=== PATIENT | female | born 1965 | race Caucasian/White ===

== ENCOUNTER 2020-07-04 21:56 | Inpatient (IN) ==
[2020-07-04] MEDS ORDERED: ALBUTEROL SULFATE/IPRATROPIUM 3 ML NEBU IH ONE (23:00)
[2020-07-04] MEDS ORDERED: NORMAL SALINE 1,000 ML IV ONE (23:00)
--- NOTE | 2020-07-04 23:05 | ERNOTE ---
Date of Service: 07/04/20 Time Seen by Provider: 07/04/20 22:59 Stated Complaint: sob Presenting Symptoms:: cough, other - Difficulty breathing Source: patient Exam Limitations: no limitations Immunizations: IMMUNIZATION HX Immunizations Up to Date Yes History of Influenza Vaccine Yes Hx Pneumococcal Vaccination Yes Allergies/Adverse Reactions: Allergies ciprofloxacin [From Cipro] Allergy (Unknown, Verified 07/04/20 22:13) swollen eyes, itching azithromycin [From Zithromax Z-Richard] Adverse Reaction (Unknown, Verified 07/04/20 22:13) felt disconnected tramadol Adverse Reaction (Unknown, Verified 07/04/20 22:13) vomiting venlafaxine Adverse Reaction (Unknown, Verified 07/04/20 22:13) out of body experience Home Medications: HOME MEDICATIONS losartan 50 mg tablet 50 mg PO DAILY #30 tab 01/15/20 [Last Taken Unknown] albuterol sulfate 90 mcg/actuation aerosol inhaler 2 puff IH Q3H PRN #8.5 g 03/16/20 [Last Taken Unknown] lansoprazole 30 mg capsule,delayed release See Rx Instructions .ROUTE .COMPLEX #30 cap 03/16/20 [Last Taken Unknown] levothyroxine 88 mcg tablet 88 mcg PO DAILY #30 tab 04/20/20 [Last Taken Unknown] furosemide 80 mg tablet See Rx Instructions .ROUTE .COMPLEX #30 tab 04/27/20 [Last Taken Unknown] phentermine 37.5 mg tablet 37.5 mg PO DAILY #30 tab 05/24/20 [Last Taken Unknown] ibuprofen 600 mg tablet 600 mg PO Q6H PRN #90 tab 06/30/20 [Last Taken Unknown] Dexamethasone [Decadron] 6 mg PO DAILY #7 tab 07/02/20 [Last Taken Unknown] HYDROcodone/ACETAMINOPHEN [[place] 10-325 Tablet] 1 ea PO TID 10 Days #30 tab 07/02/20 [Last Taken Unknown] - History of Present Ilness Narrative: 55-year-old female diagnosed with Covid nineteen 1 week ago, complaining for the last 24 hours unable to take it deep breaths feels like she cannot breathe her sats were 87% room air. Seen here 2 nights ago because she was having a lot of pain was prescribed she was prescribed Vicodin Motrin. She also says she has a fever but low-grade Date (Duration): 07/04/20 Time (Timing): 23:02 Timing: constant Severity: moderate Frequency/Possible Cause: Reports: no prior episodes Modifying Factors - Improves: Reports: rest Modifying Factors - Worsens: Reports: activity, coughing Associated Symptoms: Reports: chest pain/soreness, cough, shortness of breath, wheezing Prior Treatment: Reports: recently seen Review of Systems - Review of Systems Constitutional: Present: no symptoms reported, fever, weakness, fatigue EYE: Present: no symptoms reported ENT: Present: no symptoms reported Respiratory: Present: shortness of breath, cough, wheezing Cardiology: Present: no symptoms reported Gastrointestinal/Abdominal: Present: no symptoms reported Genitourinary: Present: no symptoms reported All Other Systems: All systems neg except as marked Medical History (Last Reviewed 07/04/20 @ 23:03 by Douglas Vinson MD) Hypothyroidism (Chronic) Onset Date: Unknown Frequent headaches (Chronic) Onset Date: Unknown Fatigue (Chronic) Onset Date: ~2011 Depressive disorder (Chronic) Onset Date: ~2011 Surgical History: Surgical History (Last Reviewed 07/04/20 @ 23:03 by Douglas Vinson MD) History of endometrial ablation Onset Date: Unknown History of tonsillectomy Onset Date: ~2014 Family History: Family History (Last Reviewed 07/04/20 @ 22:12 by Kavitha Restrepo RN) Father Myocardial infarction Mother Hypothyroidism Social History: (Last Reviewed 07/04/20 @ 22:12 by Kavitha Restrepo RN) Social History: Marital status: household members: spouse current occupational status: employed current occupation: [employer] Highest level of school completed/degree received: high school graduate Service: No Tobacco: Smoking Status: Never smoker Alcohol: alcohol intake: never Substance Use: substance use type: does not use Dietary Habits: caffeine: Yes Physical Exam - Physical Exam General Appearance: Present: wd/wn, alert, moderate distress Head Exam: Present: normal inspection Eye Exam: Normal inspection: bilateral, PERRL: bilateral, EOMI: bilateral Ears, Nose, Throat: Present: normal ENT inspection Neck: Present: normal inspection Respiratory: Present: chest nontender, respiratory distress, decreased breath sounds, wheezing Cardiovascular/Chest: Present: regular rate, rhythm Gastrointestinal/Abdominal: Present: normal bowel sounds Extremity Exam: Present: normal inspection Neurological Exam: Present: alert, oriented Skin Exam: Present: normal color Lymphatic Exam: Present: no adenopathy Progress - Results and Orders Patient's Lab Results:: I have reviewed the patient's lab results. Results and Orders: Laboratory Tests 07/04/20 07/04/20 23:10 23:10 WBC 10.3 RBC 4.28 Hgb 13.0 Hct 40.0 MCV 93.5 MCH 30.4 MCHC 32.5 RDW 12.5 Plt Count 285 Neutrophils % 90.6 H Lymphocytes % 4.8 L Sodium 142 Plasma Sodium 143 H Potassium 3.9 Chloride 103 Carbon Dioxide 32.0 Anion Gap 10.9 BUN 16 Creatinine 0.77 Est GFR (Non-Af Amer) 82 D BUN/Creatinine Ratio 20.8 Random Glucose 137 H Calcium 8.7 Calcium Adj for Albumin 9.3 Total Bilirubin 0.5 AST 285 H ALT 326 H Alkaline Phosphatase 168 Total Protein 6.7 Albumin 2.8 L Laboratory Tests 07/04/20 23:10 D-Dimer 0.57 H - Vital Signs Patient's Vital Signs:: I have reviewed the patient's vital signs. Vital Signs: Vital Signs 07/04/20 22:04 Temperature 36.9 C Pulse Rate 83 Blood Pressure 135/80 O2 Sat by Pulse Oximetry 87 L - EKG EKG #1 EKG: NSR, nonspecific ST T wave changes EKG read: Interp. by me EKG Comments: EKG shows sinus rhythm heart rate 80 nonspecific T wave changes no acute changes - X-Ray X-Ray #1 X-Ray: chest Interpretation: Interp. by me X-ray Comments: Bilateral infiltrate bilateral infiltrates upper and lower lobes - Progress/Reassessment Chief Complaint: Upper Respiratory Symptoms Progress:: Improved Progress Note-Subjective: 07/05/20 01:51 Patient after treatment felt somewhat better but she still coughing and her sats are running 2 L around 92 to 93% Plan - Plan Plan: Patient to be admitted to the hospital Dr. Matthew. Departure Clinical Impression: Pneumonia due to COVID-19 virus - Departure Disposition: Short Term Hospital Inpatient Condition: Fair Additional Instructions: Admit to the hospital Referrals: Merly Gomez MD [Primary Care Provider] -
[2020-07-04 23:20] LABS: Mean Cell Volume 93.5 fl (78-100); Mean Corpuscular Hemoglobin 30.4 pg (27-31); Mean Corpuscular Hgb Conc 32.5 g/dl (32-36); Mean Platelet Volume 9.3 fl (8-12.5); Neutrophil # 9.4 K/mm3 (1.3-6.0); Neutrophil % 90.6 % (42-75.0); Platelet Count 285 K/mm3 (150-450); Red Blood Count 4.28 M/mm3 (4.2-5.4); Red Cell Distribution Width 12.5 % (11.5-14.0); White Blood Count 10.3 K/mm3 (4.0-10.5)
[2020-07-04 23:37] LABS: Albumin * 2.8 gm/dl (3.4-5.0); Anion Gap 10.9 mmol/L (6.8-13.8); BUN/Creatinine Ratio 20.8 (9.0-21.6); Bilirubin, Total 0.5 mg/dL (0.0-1.1); Ca. Corrected For Albumin 9.3 mg/dL (8.4-10.2); Calcium * 8.7 mg/dL (7.9-10.9); Potassium 3.9 mmol/L (3.4-4.6); Total Protein 6.7 gm/dL (6.2-8.2)
[2020-07-05] MEDS ORDERED: KETOROLAC TROMETHAMINE 30 MG/ML VIAL IV ONE (00:11)
[2020-07-05] MEDS ORDERED: DEXAMETHASONE SODIUM PHOSP/PF 10 MG/ML VIAL IV ONE (02:01)
[2020-07-05] MEDS ORDERED: cefTRIAXone SODIUM 2,000 MG/100 ML BAG IV ONE (02:13)
[2020-07-05] MEDS ORDERED: NORMAL SALINE 1,000 ML IV ONE (04:19)
[2020-07-05] MEDS: guaiFENesin/DEXTROMETHORPHAN SYRUP PO PRN (04:48)
[2020-07-05] MEDS: ACETAMINOPHEN 325 MG TABLET PO PRN ×2 (04:48→18:39)
[2020-07-05] MEDS: LORazepam 0.5 MG TABLET PO PRN ×3 (07:18→18:39)
[2020-07-05] MEDS ORDERED: ALBUTEROL SULFATE 2.5 MG/3 ML VIAL.NEB IH PRN (12:38)
[2020-07-05] MEDS ORDERED: LIDOCAINE HCL 50 ML VIAL IM ONE (12:43)
[2020-07-05] MEDS ORDERED: AZITHROMYCIN 500 MG in DEXTROSE 5 % IN WATER 250 ML IV SCH ×2 (12:45)
--- NOTE | 2020-07-05 12:50 | HP ---
Chief Complaint - Chief Complaint Date of Service: 07/05/20 Time of Service: 12:40 Chief Complaint: I did have weakness, shortness of breath, and cough for several days History of Present Illness: 55-year-old female with past medical history of obesity, hypertension, anxiety disorder, and hypothyroidism was evaluated in the ER for worsening symptoms due to COVID-19 pneumonia. Patient was seen in the ER 2 days ago for increasing shortness of breath, cough, congestion, and generalized weakness she was found to be COVID-19 positive and was discharged with pain medications for body aches and a 10-day course of oral dexamethasone. However once the patient got home her symptoms continue to worsen and she got weaker and sicker, so much so that she felt that she could not handle the symptoms at home any longer and return to the ER. Once in the ER the patient was found to be hypoxemic and acutely ill so decision to admit her for intrahospital care was made. Medical History (Last Reviewed 07/04/20 @ 23:03 by Douglas Vinson MD) Hypothyroidism (Chronic) Onset Date: Unknown Frequent headaches (Chronic) Onset Date: Unknown Fatigue (Chronic) Onset Date: ~2011 Depressive disorder (Chronic) Onset Date: ~2011 Surgical History: Surgical History (Last Reviewed 07/04/20 @ 23:03 by Douglas Vinson MD) History of endometrial ablation Onset Date: Unknown History of tonsillectomy Onset Date: ~2014 Family History: Family History (Last Reviewed 07/04/20 @ 22:12 by Kavitha Restrepo RN) Father Myocardial infarction Mother Hypothyroidism Social History: (Last Reviewed 07/04/20 @ 22:12 by Kavitha Restrepo RN) Social History: Marital status: household members: spouse current occupational status: employed current occupation: [employer] Highest level of school completed/degree received: high school graduate Service: No Tobacco: Smoking Status: Never smoker Alcohol: alcohol intake: never Substance Use: substance use type: does not use Dietary Habits: caffeine: Yes Peds Patient Hx - Developmental: No Pertinent Hx Peds Patient Hx - Medical: No Pertinent Hx Peds Patient Hx - Cardiac/Respiratory: No Pertinent Hx Peds Patient Hx - Surgical: No Surgical History Patient History - Cancer: No Hx of Cancer Review Of Systems (GEN) - Review of Systems Generalized/Overall Review: Present: Weakness, Chills, Fever, Fatigue EENTM: Present: No Symptoms Reported Respiratory: Present: Cough, Shortness of Breath Cardiac: Present: No Symptoms Reported Abdominal: Present: No Symptoms Reported Genitourinary: Present: No Symptoms Reported Musculoskeletal: Present: No Symptoms Reported Neurological: Present: No Symptoms Reported Skin: Present: No Symptoms Reported Endocrine: Present: No Symptoms Reported Immunizations: IMMUNIZATION HX Immunizations Up to Date Yes History of Influenza Vaccine Yes Hx Pneumococcal Vaccination Yes Allergies/Adverse Reactions: Allergies Allergy/AdvReac Type Severity Reaction Status Date / Time ciprofloxacin [From Cipro] Allergy Unknown swollen Verified 07/04/20 22:13 eyes, itching azithromycin AdvReac Unknown felt Verified 07/04/20 22:13 [From Zithromax Z-Richard] disconnected tramadol AdvReac Unknown vomiting Verified 07/04/20 22:13 venlafaxine AdvReac Unknown out of Verified 07/04/20 22:13 body experience Home Medications: HOME MEDICATIONS losartan 50 mg tablet 50 mg PO DAILY #30 tab 01/15/20 [Last Taken Unknown] albuterol sulfate 90 mcg/actuation aerosol inhaler 2 puff IH Q3H PRN #8.5 g 03/16/20 [Last Taken Unknown] levothyroxine 88 mcg tablet 88 mcg PO DAILY #30 tab 04/20/20 [Last Taken Unknown] furosemide 80 mg tablet See Rx Instructions .ROUTE .COMPLEX #30 tab 04/27/20 [Last Taken Unknown] ibuprofen 600 mg tablet 600 mg PO Q6H PRN #90 tab 06/30/20 [Last Taken Unknown] Dexamethasone [Decadron] 6 mg PO DAILY #7 tab 07/02/20 [Last Taken Unknown] HYDROcodone/ACETAMINOPHEN [[place] 10-325 Tablet] 1 ea PO TID PRN 07/05/20 [Last Taken Unknown] Lansoprazole [Prevacid] See Rx Instructions .ROUTE .COMPLEX PRN 07/05/20 [Last Taken Unknown] Exam - Exam Vital Signs: Vital Signs - Last Taken Temp 37.0 C 07/05/20 12:00 Pulse 76 07/05/20 12:00 Resp 20 07/05/20 12:00 BP 152/76 H 07/05/20 12:00 Pulse Ox 98 07/05/20 12:11 Constitutional: Present: Alert, Oriented x3, Cooperative, Well developed, Well nourished, No distress, Morbidly obese ENT Exam: Present: normal ENT inspection, hearing grossly normal Eye Exam: bilateral eye: normal inspection, PERRL, EOMI Neck: Present: non-tender, full range of motion, supple, normal inspection, trachea midline Back Exam: Present: normal inspection, no CVA tenderness, no vertebral tenderness Breasts: Present: Exam deferred, Nontender Respiratory: Present: chest non-tender, lungs clear, normal breath sounds, no respiratory distress, no accessory muscle use Cardiovascular/Chest: Present: normal peripheral pulses, regular rate, rhythm, no chest tenderness, no edema, no gallop, no JVD, no murmur, no rub Peripheral Pulses: dorsalis-pedis (R): 2+, dorsalis-pedis (L): 2+ Abdomen: Present: Normal bowel sounds, soft, nontender, nondistended, no rebound tenderness, no hepatospenomegaly, no masses, obese /Rectal: Present: Exam deferred Extremity: Present: normal range of motion, non-tender, normal inspection, no pedal edema, no calf tenderness, normal capillary refill, pelvis stable Skin Exam: Present: normal color, warm/dry, no cyanosis Lymphatic: Present: no adenopathy Neurologic: Present: rubber block layer II-XII nml as tested, no motor/sensory deficits, alert, normal mood/affect, oriented x 3 Appearance: Present: appropriate appearance, appropriate insight, neat, no memory impairment Eye contact: Present: cooperative, good eye contact, normal speech Thoughts: Present: normal thought pattern, no apparent hallucination Diagnostic Studies: Abnormal Lab Results 07/04/20 07/04/20 07/04/20 Range/Units 23:10 23:10 23:10 Immature Gran % (Auto) 0.90 H (0.001-0.429) % Immature Gran # (Auto) 0.09 H (0.000-0.0310) K/mm3 Neutrophils % 90.6 H (42-75.0) % Lymphocytes % 4.8 L (20-51) % Neutrophils # 9.4 H (1.3-6.0) K/mm3 Lymphocytes # 0.50 L (1.5-3.5) k/mm3 D-Dimer 0.57 H (0.19-0.49) ugFEU/mL Plasma Sodium 143 H (130-142) mmol/L Random Glucose 137 H (70-110) mg/dL AST 285 H (0-48) U/L ALT 326 H (19-67) U/L Albumin 2.8 L (3.4-5.0) gm/dl Laboratory Results WBC 10.3 K/mm3 (4.0-10.5) 07/04/20 23:10 RBC 4.28 M/mm3 (4.2-5.4) 07/04/20 23:10 Hgb 13.0 gm/dL (12.5-16.0) 07/04/20 23:10 Hct 40.0 % (37.0-47.0) 07/04/20 23:10 MCV 93.5 fl (78-100) 07/04/20 23:10 MCH 30.4 pg (27-31) 07/04/20 23:10 MCHC 32.5 g/dl (32-36) 07/04/20 23:10 RDW 12.5 % (11.5-14.0) 07/04/20 23:10 Plt Count 285 K/mm3 (150-450) 07/04/20 23:10 MPV 9.3 fl (8-12.5) 07/04/20 23:10 Immature Gran % (Auto) 0.90 % (0.001-0.429) H 07/04/20 23:10 Immature Gran # (Auto) 0.09 K/mm3 (0.000-0.0310) H 07/04/20 23:10 Neutrophils % 90.6 % (42-75.0) H 07/04/20 23:10 Lymphocytes % 4.8 % (20-51) L 07/04/20 23:10 Monocytes % 3.6 % (0.0-9) 07/04/20 23:10 Eosinophils % 0.0 % (0.0-3.0) 07/04/20 23:10 Basophils % 0.1 % (0.0-1.0) 07/04/20 23:10 Nucleated RBC % 0.0 k/mm3 (0-1) 07/04/20 23:10 Neutrophils # 9.4 K/mm3 (1.3-6.0) H 07/04/20 23:10 Lymphocytes # 0.50 k/mm3 (1.5-3.5) L 07/04/20 23:10 Monocytes # 0.4 k/mm3 (0.0-1.0) 07/04/20 23:10 Eosinophils # 0.0 k/mm3 (0.0-0.7) 07/04/20 23:10 Absolute Basophils 0.0 k/mm3 (0.0-0.1) 07/04/20 23:10 D-Dimer 0.57 ugFEU/mL (0.19-0.49) H 07/04/20 23:10 Sodium 142 mmol/L (132-142) 07/04/20 23:10 Plasma Sodium 143 mmol/L (130-142) H 07/04/20 23:10 Potassium 3.9 mmol/L (3.4-4.6) 07/04/20 23:10 Chloride 103 mmol/L (97-106) 07/04/20 23:10 Carbon Dioxide 32.0 mmol/L (24-32.6) 07/04/20 23:10 Anion Gap 10.9 mmol/L (6.8-13.8) 07/04/20 23:10 BUN 16 mg/dL (3-23) 07/04/20 23:10 Creatinine 0.77 mg/dL (0.4-1.4) 07/04/20 23:10 Est GFR (Non-Af Amer) 82 mL/min (60-130) D 07/04/20 23:10 BUN/Creatinine Ratio 20.8 (9.0-21.6) 07/04/20 23:10 Random Glucose 137 mg/dL (70-110) H 07/04/20 23:10 Calcium 8.7 mg/dL (7.9-10.9) 07/04/20 23:10 Calcium Adj for Albumin 9.3 mg/dL (8.4-10.2) 07/04/20 23:10 Total Bilirubin 0.5 mg/dL (0.0-1.1) 07/04/20 23:10 AST 285 U/L (0-48) H 07/04/20 23:10 ALT 326 U/L (19-67) H 07/04/20 23:10 Alkaline Phosphatase 168 U/L (50-170) 07/04/20 23:10 Total Protein 6.7 gm/dL (6.2-8.2) 07/04/20 23:10 Albumin 2.8 gm/dl (3.4-5.0) L 07/04/20 23:10 Assessment/Plan - Narrative Narrative: Patient was evaluated medical chart was reviewed and decision to admit for intrahospital care of acute COVID-19 pneumonia and dehydration was made. Patient is currently being treated with antibiotics, daily dexamethasone and IV fluid which she is tolerating without issues. Currently she is on oxygen therapy by nasal cannula which she is tolerating without any issues, however she continues to report significant anxiety so Ativan had to be added to her care. Patient was given reassurance that she is being well taken care of and that we will continue to monitor closely. Labs revealed elevated liver enzymes which is most likely an acute inflammatory response to the virus, will repeat labs in the morning to continue watching this. - Assessment/Plan (1) Anxiety Problem: Acute (2) Pneumonia due to COVID-19 virus Problem: Acute (3) Hypothyroidism Problem: Chronic (4) Fatigue Problem: Chronic (5) Depressive disorder Problem: Chronic (6) Dehydration Problem: Acute (7) Transaminitis Problem: Acute
[2020-07-05] MEDS ORDERED: ALBUTEROL SULFATE 200 PUFF INHALER IH PRN ×2 (13:30)
[2020-07-05] MEDS: ENOXAPARIN SODIUM 40 MG/0.4 ML SYRG SC SCH (13:55)
[2020-07-05] MEDS: LEVOTHYROXINE SODIUM 88 MCG TABLET PO SCH (13:55)
[2020-07-05] MEDS: FUROSEMIDE 80 MG TABLET PO SCH (13:56)
[2020-07-05] MEDS: IPRATROPIUM/ALBUTEROL SULFATE 120 PUFF INHALER IH SCH ×3 (14:00→23:21)
[2020-07-05] MEDS ORDERED: ALBUTEROL SULFATE/IPRATROPIUM 3 ML NEBU IH SCH (15:00)
[2020-07-05] MEDS ORDERED: oxyCODONE HCL 5 MG TABLET PO ONE (19:18)
[2020-07-05] MEDS ORDERED: oxyCODONE HCL 5 MG TABLET PO PRN (19:48)
[2020-07-05] MEDS: PANTOPRAZOLE SODIUM 20 MG TABLET.DR PO SCH (20:01)
[2020-07-06] MEDS: DEXAMETHASONE SODIUM PHOSP/PF 10 MG/ML VIAL IV SCH ×2 (01:47→08:49)
[2020-07-06] MEDS: LORazepam 0.5 MG TABLET PO PRN ×4 (01:47→17:53)
[2020-07-06] MEDS: IPRATROPIUM/ALBUTEROL SULFATE 120 PUFF INHALER IH SCH ×7 (02:08→22:03)
[2020-07-06] MEDS ORDERED: HYDROcodone/ACETAMINOPHEN 1 EACH TABLET PO PRN (06:18)
[2020-07-06 06:43] LABS: Albumin * 2.5 gm/dl (3.4-5.0); Anion Gap 7.3 mmol/L (6.8-13.8); BUN/Creatinine Ratio 26.7 (9.0-21.6); Bilirubin, Total 0.4 mg/dL (0.0-1.1); Ca. Corrected For Albumin 9.5 mg/dL (8.4-10.2); Calcium * 8.6 mg/dL (7.9-10.9); Carbon Dioxide 36.6 mmol/L (24-32.6); Potassium 3.9 mmol/L (3.4-4.6); Total Protein 6.7 gm/dL (6.2-8.2)
[2020-07-06] MEDS: LEVOTHYROXINE SODIUM 88 MCG TABLET PO SCH (07:14)
[2020-07-06] MEDS: PANTOPRAZOLE SODIUM 20 MG TABLET.DR PO SCH ×2 (07:14→20:29)
[2020-07-06] MEDS: ONDANSETRON HCL/PF 2 MG/ML VIAL IV PRN ×3 (07:35→23:49)
[2020-07-06] MEDS: LOSARTAN POTASSIUM 50 MG TABLET PO SCH (08:47)
[2020-07-06] MEDS: FUROSEMIDE 80 MG TABLET PO SCH (08:48)
[2020-07-06] MEDS: guaiFENesin/DEXTROMETHORPHAN SYRUP PO PRN ×2 (08:50→17:53)
--- NOTE | 2020-07-06 09:19 | PN ---
Subjective - Date and Time Seen Date: 07/06/20 Time: 09:12 Subjective Narrative: I still have shortness of breath and cough and feel anxious. Objective Objective Narrative: 55-year-old female admitted for acute COVID-19 pneumonia and hydration was evaluated bedside this morning was found to be afebrile and in no acute distress. Patient has shown mild clinical improvement, she reports being less short of breath and is tolerating oxygen therapy better than when she arrived. Patient is to keep the oxygen saturation above 93% so we will attempt to wean down. She continues to complain of significant anxiety which she says is new for her. Ativan has been added to her treatment and is being administered as needed. Labs this morning revealed downward trend of her liver enzymes which were most likely elevated due to the acute inflammatory illness, we will continue to monitor this closely. We will continue the current management and reevaluate in the morning. - Review of Systems Generalized/Overall Review: Reports: Weakness, Fatigue EENTM: Reports: No Symptoms Reported Respiratory: Reports: Cough, Shortness of Breath Cardiac: Reports: No Symptoms Reported Abdominal: Reports: No Symptoms Reported Genitourinary Symptoms: Reports: No Symptoms Reported Musculoskeletal Complaints: Reports: No Symptoms Reported Neurological: Reports: No Symptoms Reported Skin: Reports: No Symptoms Reported Endocrine: Reports: No Symptoms Reported - Vitals Vitals: Last Vital Signs Temp 37.2 C 07/06/20 07:24 Pulse 78 07/06/20 08:48 Resp 20 07/06/20 07:24 BP 144/85 H 07/06/20 08:48 Pulse Ox 95 07/06/20 07:24 - Abnormal Lab Findings Abnormal Lab Findings: Abnormal Lab Results 07/06/20 Range/Units 06:25 Plasma Sodium 143 H (130-142) mmol/L Carbon Dioxide 36.6 H (24-32.6) mmol/L BUN/Creatinine Ratio 26.7 H (9.0-21.6) Random Glucose 134 H (70-110) mg/dL AST 69 H (0-48) U/L ALT 167 H (19-67) U/L Albumin 2.5 L (3.4-5.0) gm/dl - Exam Constitutional: Present: Alert, Oriented x3, Cooperative, Well developed, Well nourished, No distress, Morbidly obese ENT Exam: Present: normal ENT inspection, hearing grossly normal Neck: Present: non-tender, full range of motion, supple, normal inspection, trachea midline Breasts: Present: Exam deferred, Nontender Respiratory: Present: chest non-tender, no respiratory distress, no accessory muscle use, crackles, rales Cardiovascular/Chest: Present: normal peripheral pulses, regular rate, rhythm, no chest tenderness, no edema, no gallop, no JVD, no murmur, no rub Abdomen: Present: Normal bowel sounds, soft, nontender, nondistended, no rebound tenderness, no hepatospenomegaly, no masses /Rectal: Present: Exam deferred Extremity: Present: normal range of motion, non-tender, normal inspection, no pedal edema, no calf tenderness, normal capillary refill, pelvis stable Skin Exam: Present: normal color, warm/dry, no cyanosis Lymphatic: Present: no adenopathy Neurologic: Present: sheep clipper II-XII nml as tested, no motor/sensory deficits, alert, normal mood/affect, oriented x 3 Appearance: Present: appropriate appearance, appropriate insight, neat, no memory impairment Eye contact: Present: cooperative, good eye contact, normal speech Thoughts: Present: normal thought pattern, no apparent hallucination Assessment/Plan Plan Narrative: We will continue current management and repeat labs in the morning. - Problems/Diagnosis (1) Anxiety Problem: Acute (2) Pneumonia due to COVID-19 virus Problem: Acute (3) Hypothyroidism Problem: Chronic (4) Fatigue Problem: Chronic (5) Depressive disorder Problem: Chronic (6) Dehydration Problem: Resolved (7) Transaminitis Problem: Acute
[2020-07-06] MEDS: DOCUSATE SODIUM 100 MG CAPSULE PO SCH ×2 (10:01→20:29)
[2020-07-06] MEDS: ENOXAPARIN SODIUM 40 MG/0.4 ML SYRG SC SCH (11:48)
[2020-07-06] MEDS: ACETAMINOPHEN 325 MG TABLET PO PRN ×2 (13:40→23:37)
[2020-07-06] MEDS ORDERED: LORazepam 0.5 MG TABLET PO ONE (20:58)
[2020-07-07] MEDS: IPRATROPIUM/ALBUTEROL SULFATE 120 PUFF INHALER IH SCH ×6 (03:06→22:10)
[2020-07-07] MEDS: ONDANSETRON HCL/PF 2 MG/ML VIAL IV PRN (04:37)
[2020-07-07] MEDS: LORazepam 0.5 MG TABLET PO PRN (05:46)
[2020-07-07 06:56] LABS: Albumin * 2.4 gm/dl (3.4-5.0); Anion Gap 7.7 mmol/L (6.8-13.8); BUN/Creatinine Ratio 27.9 (9.0-21.6); Bilirubin, Total 0.6 mg/dL (0.0-1.1); Ca. Corrected For Albumin 9.6 mg/dL (8.4-10.2); Calcium * 8.6 mg/dL (7.9-10.9); Carbon Dioxide 37.8 mmol/L (24-32.6); Potassium 3.5 mmol/L (3.4-4.6); Total Protein 6.4 gm/dL (6.2-8.2)
[2020-07-07] MEDS: LEVOTHYROXINE SODIUM 88 MCG TABLET PO SCH (06:57)
[2020-07-07] MEDS: PANTOPRAZOLE SODIUM 20 MG TABLET.DR PO SCH ×2 (06:57→20:04)
[2020-07-07] MEDS: guaiFENesin/DEXTROMETHORPHAN SYRUP PO PRN (06:59)
[2020-07-07] MEDS: ACETAMINOPHEN 325 MG TABLET PO PRN (07:00)
[2020-07-07] MEDS ORDERED: LORazepam 2 MG/ML DISP.SYRIN IV SCH (07:30)
[2020-07-07] MEDS: LORazepam 2 MG/ML DISP.SYRIN IV PRN ×4 (07:46→23:08)
[2020-07-07] MEDS ORDERED: hydrOXYzine HCL 50 MG/ML VIAL IM PRN (09:27)
[2020-07-07] MEDS: LOSARTAN POTASSIUM 50 MG TABLET PO SCH (09:49)
[2020-07-07] MEDS: DOCUSATE SODIUM 100 MG CAPSULE PO SCH ×2 (09:49→20:04)
[2020-07-07] MEDS: DEXAMETHASONE SODIUM PHOSP/PF 10 MG/ML VIAL IV SCH (09:49)
[2020-07-07] MEDS: FUROSEMIDE 80 MG TABLET PO SCH (09:49)
--- NOTE | 2020-07-07 09:54 | PN ---
Subjective - Date and Time Seen Date: 07/07/20 Time: 09:50 Subjective Narrative: I still have shortness of breath and cough and feel anxious. Objective Objective Narrative: 55-year-old female admitted for COVID-19 pneumonia and dehydration was evaluated at bedside this morning was found to be afebrile and in no acute distress, however the patient continues to be acutely ill and requires intrahospital care. Anxiety continues to be an issue for this patient so Ativan was switched to IV and an additional anxiolytic was added to her treatment. Lab this morning did show an improvement and transaminases which most likely indicates improvement in the systemic inflammation. The patient continues to be on high flow nasal cannula requiring more than 10 L of oxygen and sometimes more night. She also continues to complain of being tired and fatigued, therefore we will keep her in the hospital for additional treatment. - Review of Systems Generalized/Overall Review: Reports: Weakness, Fatigue EENTM: Reports: No Symptoms Reported Respiratory: Reports: Cough, Shortness of Breath Cardiac: Reports: No Symptoms Reported Abdominal: Reports: No Symptoms Reported Genitourinary Symptoms: Reports: No Symptoms Reported Musculoskeletal Complaints: Reports: No Symptoms Reported Neurological: Reports: Anxiety Skin: Reports: No Symptoms Reported Endocrine: Reports: No Symptoms Reported - Vitals Vitals: Last Vital Signs Temp 36.7 C 07/07/20 07:09 Pulse 83 07/07/20 07:09 Resp 20 07/07/20 07:09 BP 134/67 07/07/20 07:09 Pulse Ox 96 07/07/20 08:09 - Abnormal Lab Findings Abnormal Lab Findings: Abnormal Lab Results 07/07/20 Range/Units 06:36 Sodium 143 H (132-142) mmol/L Plasma Sodium 143 H (130-142) mmol/L Carbon Dioxide 37.8 H (24-32.6) mmol/L BUN 24 H (3-23) mg/dL BUN/Creatinine Ratio 27.9 H (9.0-21.6) AST 55 H (0-48) U/L ALT 134 H (19-67) U/L Albumin 2.4 L (3.4-5.0) gm/dl - Exam Constitutional: Present: Alert, Oriented x3, Cooperative, Well developed, Well nourished, No distress ENT Exam: Present: normal ENT inspection, hearing grossly normal Neck: Present: non-tender, full range of motion, supple, normal inspection, trachea midline Breasts: Present: Exam deferred, Nontender Respiratory: Present: chest non-tender, no respiratory distress, no accessory muscle use, crackles Cardiovascular/Chest: Present: normal peripheral pulses, regular rate, rhythm, no chest tenderness, no edema, no gallop, no JVD, no murmur, no rub Abdomen: Present: Normal bowel sounds, soft, nontender, nondistended, no rebound tenderness, no hepatospenomegaly, no masses /Rectal: Present: Exam deferred Extremity: Present: normal range of motion, non-tender, normal inspection, no pedal edema, no calf tenderness, normal capillary refill, pelvis stable Skin Exam: Present: normal color, warm/dry, no cyanosis Lymphatic: Present: no adenopathy Neurologic: Present: no motor/sensory deficits, alert, normal mood/affect, oriented x 3 Appearance: Present: appropriate appearance, appropriate insight, neat, no memory impairment Eye contact: Present: cooperative, good eye contact, normal speech Thoughts: Present: normal thought pattern Assessment/Plan Plan Narrative: We will keep the patient for an additional day of intrahospital care and see how she does with the new anxiolytic. When she is better we will attempt to wean her oxygen. - Problems/Diagnosis (1) Anxiety Problem: Acute (2) Pneumonia due to COVID-19 virus Problem: Acute (3) Hypothyroidism Problem: Chronic (4) Fatigue Problem: Chronic (5) Depressive disorder Problem: Chronic (6) Dehydration Problem: Resolved (7) Transaminitis Problem: Acute
[2020-07-07] MEDS: ENOXAPARIN SODIUM 40 MG/0.4 ML SYRG SC SCH (11:46)
[2020-07-07] MEDS: hydrOXYzine PAMOATE 50 MG CAPSULE PO PRN ×2 (13:23→23:25)
[2020-07-08] MEDS: IPRATROPIUM/ALBUTEROL SULFATE 120 PUFF INHALER IH SCH ×6 (02:39→23:12)
[2020-07-08] MEDS: LORazepam 2 MG/ML DISP.SYRIN IV PRN ×2 (03:15→08:09)
[2020-07-08] MEDS: PANTOPRAZOLE SODIUM 20 MG TABLET.DR PO SCH ×2 (06:28→23:12)
[2020-07-08] MEDS: LEVOTHYROXINE SODIUM 88 MCG TABLET PO SCH (06:29)
[2020-07-08] MEDS: FUROSEMIDE 80 MG TABLET PO SCH (08:10)
[2020-07-08] MEDS: LOSARTAN POTASSIUM 50 MG TABLET PO SCH (08:21)
[2020-07-08] MEDS: DOCUSATE SODIUM 100 MG CAPSULE PO SCH ×2 (08:21→23:12)
[2020-07-08] MEDS: DEXAMETHASONE SODIUM PHOSP/PF 10 MG/ML VIAL IV SCH (08:21)
--- NOTE | 2020-07-08 10:36 | PN ---
Subjective - Date and Time Seen Date: 07/08/20 Time: 10:32 Subjective Narrative: I feel a little better, but still have trouble breathing. Objective Objective Narrative: 55-year-old female admitted for COVID-19 pneumonia and dehydration was evaluated at bedside this morning was found to be afebrile and in no acute distress. Patient reports feeling a little better this morning, she reports breathing a little easier but still has chest congestion. Weaning of oxygen has been unsuccessful, as soon as a nonrebreather is reduced or removed the patient desaturates to the upper 70s. Auscultation was also significant for crackles in all the lung bases and the patient sounded congested. I do not think that we are out of the hernandez yet so the patient will need additional days of intrahospital care. As far as her anxiety nursing staff report that it is improved but the patient still requires anxiolytic every couple of hours to keep her calm. She was also receiving Cameron for pain but after lethargy and overseda tion were reported the medication was discontinued. We will manage her pain with just Tylenol for now. - Review of Systems Generalized/Overall Review: Reports: Weakness, Fatigue EENTM: Reports: No Symptoms Reported Respiratory: Reports: Cough, Shortness of Breath Cardiac: Reports: No Symptoms Reported Abdominal: Reports: No Symptoms Reported Genitourinary Symptoms: Reports: No Symptoms Reported Musculoskeletal Complaints: Reports: No Symptoms Reported Neurological: Reports: No Symptoms Reported Skin: Reports: No Symptoms Reported Endocrine: Reports: No Symptoms Reported - Vitals Vitals: Last Vital Signs Temp 36.4 C 07/08/20 10:26 Pulse 86 07/08/20 10:26 Resp 22 H 07/08/20 10:26 BP 117/70 07/08/20 10:26 Pulse Ox 94 07/08/20 10:26 - Exam Constitutional: Present: Alert, Oriented x3, Cooperative, Well developed, No distress, Obese ENT Exam: Present: normal ENT inspection, hearing grossly normal Neck: Present: non-tender, full range of motion, supple, normal inspection, trachea midline Breasts: Present: Exam deferred, Nontender Respiratory: Present: decreased breath sounds, crackles Cardiovascular/Chest: Present: normal peripheral pulses, regular rate, rhythm, no chest tenderness, no edema, no gallop, no JVD, no murmur, no rub Abdomen: Present: Normal bowel sounds, soft, nontender, nondistended, no rebound tenderness, no hepatospenomegaly, no masses, obese /Rectal: Present: Exam deferred Extremity: Present: normal range of motion, non-tender, normal inspection, no pedal edema, no calf tenderness Skin Exam: Present: normal color, warm/dry, no cyanosis Lymphatic: Present: no adenopathy Neurologic: Present: dough maker II-XII nml as tested, no motor/sensory deficits, alert, normal mood/affect, oriented x 3 Appearance: Present: appropriate appearance, appropriate insight, neat, no memory impairment Eye contact: Present: cooperative, good eye contact, normal speech Thoughts: Present: normal thought pattern, no apparent hallucination Assessment/Plan Plan Narrative: We will continue to manage the patient with supportive therapy and attempt to wean oxygen as tolerated. - Problems/Diagnosis (1) Anxiety Problem: Acute (2) Pneumonia due to COVID-19 virus Problem: Acute (3) Hypothyroidism Problem: Chronic (4) Fatigue Problem: Chronic (5) Depressive disorder Problem: Chronic (6) Dehydration Problem: Resolved (7) Transaminitis Problem: Acute
[2020-07-08] MEDS: ENOXAPARIN SODIUM 40 MG/0.4 ML SYRG SC SCH (11:47)
[2020-07-08] MEDS: ASCORBIC ACID 500 MG TABLET PO SCH (12:23)
[2020-07-08] MEDS: ZINC SULFATE 220 MG CAPSULE PO SCH (12:24)
[2020-07-08] MEDS: hydrOXYzine PAMOATE 50 MG CAPSULE PO PRN (18:34)
[2020-07-08] MEDS: ACETAMINOPHEN 325 MG TABLET PO PRN (18:34)
[2020-07-09] MEDS: IPRATROPIUM/ALBUTEROL SULFATE 120 PUFF INHALER IH SCH ×6 (00:50→18:53)
[2020-07-09] MEDS: hydrOXYzine PAMOATE 50 MG CAPSULE PO PRN (05:24)
[2020-07-09] MEDS: PANTOPRAZOLE SODIUM 20 MG TABLET.DR PO SCH ×2 (06:28→20:21)
[2020-07-09] MEDS: LEVOTHYROXINE SODIUM 88 MCG TABLET PO SCH (06:29)
[2020-07-09] MEDS: FUROSEMIDE 80 MG TABLET PO SCH (08:18)
[2020-07-09] MEDS: ZINC SULFATE 220 MG CAPSULE PO SCH (08:18)
[2020-07-09] MEDS: DEXAMETHASONE SODIUM PHOSP/PF 10 MG/ML VIAL IV SCH (08:18)
[2020-07-09] MEDS: DOCUSATE SODIUM 100 MG CAPSULE PO SCH ×2 (08:18→20:21)
[2020-07-09] MEDS: LOSARTAN POTASSIUM 50 MG TABLET PO SCH (08:18)
[2020-07-09] MEDS: ASCORBIC ACID 500 MG TABLET PO SCH (08:18)
[2020-07-09] MEDS ORDERED: METHYLPREDNISOLONE SOD SUCC/PF 40 MG/ML VIAL IV SCH (09:45)
--- NOTE | 2020-07-09 09:51 | PN ---
Subjective - Date and Time Seen Date: 07/09/20 Time: 09:46 Subjective Narrative: My shortness of breath has improved but I still have trouble breathing Objective Objective Narrative: 55-year-old female admitted for COVID-19 pneumonia and dehydration was evaluated at bedside this morning was found to be afebrile and in no acute distress. Patient continues to be acutely ill and requires oxygen by nonrebreather. Patient was high flow nasal cannula yesterday so attempts to wean her down failed and she desaturated requiring a nonrebreather. For now she maintained stable vitals and her anxiety has improved greatly. She denies any chest pain or other new symptoms besides the aforementioned shortness of breath. Given the duration of her symptoms I will order chest x-ray for evaluation to see if there is any progress in her pulmonary system. - Review of Systems Generalized/Overall Review: Reports: Weakness EENTM: Reports: No Symptoms Reported Respiratory: Reports: Cough, Shortness of Breath Cardiac: Reports: No Symptoms Reported Abdominal: Reports: No Symptoms Reported Genitourinary Symptoms: Reports: No Symptoms Reported Musculoskeletal Complaints: Reports: No Symptoms Reported Neurological: Reports: No Symptoms Reported Skin: Reports: No Symptoms Reported Endocrine: Reports: No Symptoms Reported - Vitals Vitals: Last Vital Signs Temp 36.9 C 07/09/20 06:54 Pulse 84 07/09/20 08:18 Resp 22 H 07/09/20 06:54 BP 116/70 07/09/20 08:18 Pulse Ox 95 07/09/20 06:54 - Exam Constitutional: Present: Alert, Oriented x3, Cooperative, Well developed, Well nourished, No distress ENT Exam: Present: normal ENT inspection, hearing grossly normal Neck: Present: non-tender, full range of motion, supple, normal inspection, trachea midline Breasts: Present: Exam deferred, Nontender Respiratory: Present: no accessory muscle use, crackles Cardiovascular/Chest: Present: normal peripheral pulses, regular rate, rhythm, no chest tenderness, no edema, no gallop, no JVD, no murmur, no rub Abdomen: Present: Normal bowel sounds, soft, nontender, nondistended, no rebound tenderness, no hepatospenomegaly, no masses /Rectal: Present: Exam deferred Extremity: Present: normal range of motion, non-tender Skin Exam: Present: normal color, warm/dry, no cyanosis Lymphatic: Present: no adenopathy 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 This morning we will switch to IV Solu-Medrol for better affect on pulmonary inflammation secondary to the COVID-19. We also ordered breathing treatments for the patient to assist in her breathing. CMP has been ordered for reevaluation of her electrolytes. I will repeat a chest x-ray to compare with the one from admission. - Problems/Diagnosis (1) Anxiety Problem: Acute (2) Pneumonia due to COVID-19 virus Problem: Acute (3) Hypothyroidism Problem: Chronic (4) Fatigue Problem: Chronic (5) Depressive disorder Problem: Chronic (6) Dehydration Problem: Resolved (7) Transaminitis Problem: Acute
[2020-07-09 10:44] LABS: Albumin * 2.4 gm/dl (3.4-5.0); Anion Gap 11.9 mmol/L (6.8-13.8); BUN/Creatinine Ratio 26.1 (9.0-21.6); Bilirubin, Total 0.8 mg/dL (0.0-1.1); Ca. Corrected For Albumin 9.3 mg/dL (8.4-10.2); Calcium * 8.3 mg/dL (7.9-10.9); Carbon Dioxide 34.6 mmol/L (24-32.6); Potassium 3.5 mmol/L (3.4-4.6); Total Protein 5.9 gm/dL (6.2-8.2)
[2020-07-09] MEDS ORDERED: ALBUTEROL SULFATE/IPRATROPIUM 3 ML NEBU IH SCH (11:00)
[2020-07-09] MEDS: ENOXAPARIN SODIUM 40 MG/0.4 ML SYRG SC SCH (12:35)
[2020-07-09] MEDS: ACETAMINOPHEN 325 MG TABLET PO PRN ×2 (12:37→20:21)
[2020-07-09] MEDS: METHYLPREDNISOLONE SOD SUCC/PF 125 MG/2 ML VIAL IV SCH ×2 (15:10→21:12)
[2020-07-09] MEDS: LEVOFLOXACIN IN DEXTROSE 5 % 500 MG/100 ML BAG IV SCH (15:10)
[2020-07-09] MEDS: LORazepam 2 MG/ML DISP.SYRIN IV PRN (20:21)
[2020-07-09] MEDS: guaiFENesin/DEXTROMETHORPHAN SYRUP PO PRN (20:32)
[2020-07-10] MEDS: hydrOXYzine PAMOATE 50 MG CAPSULE PO PRN ×4 (02:16→17:07)
[2020-07-10] MEDS: ACETAMINOPHEN 325 MG TABLET PO PRN ×5 (02:17→21:11)
[2020-07-10] MEDS: METHYLPREDNISOLONE SOD SUCC/PF 125 MG/2 ML VIAL IV SCH ×4 (03:30→20:51)
[2020-07-10] MEDS: IPRATROPIUM/ALBUTEROL SULFATE 120 PUFF INHALER IH SCH ×6 (03:58→22:34)
[2020-07-10] MEDS: LEVOTHYROXINE SODIUM 88 MCG TABLET PO SCH (07:42)
[2020-07-10] MEDS: PANTOPRAZOLE SODIUM 20 MG TABLET.DR PO SCH ×2 (07:42→20:50)
[2020-07-10] MEDS: LOSARTAN POTASSIUM 50 MG TABLET PO SCH (08:30)
[2020-07-10] MEDS: ZINC SULFATE 220 MG CAPSULE PO SCH (08:31)
[2020-07-10] MEDS: DOCUSATE SODIUM 100 MG CAPSULE PO SCH ×2 (08:31→20:50)
[2020-07-10] MEDS: FUROSEMIDE 80 MG TABLET PO SCH (08:31)
[2020-07-10] MEDS: ASCORBIC ACID 500 MG TABLET PO SCH (08:31)
[2020-07-10] MEDS: ENOXAPARIN SODIUM 40 MG/0.4 ML SYRG SC SCH (12:31)
--- NOTE | 2020-07-10 14:00 | PN ---
Subjective - Date and Time Seen Date: 07/10/20 Time: 11:15 Subjective Narrative: Rosio reports feeling the same. No significant improvement or worsening from yesterday. No fever or chills. No respiratory distress. Objective - Vitals Vitals: Last Vital Signs Temp 37.3 C 07/10/20 08:37 Pulse 80 07/10/20 08:37 Resp 21 H 07/10/20 08:37 BP 137/74 07/10/20 08:37 Pulse Ox 94 07/10/20 08:37 - Exam Constitutional: Present: Alert, Oriented x3, Cooperative Respiratory: Present: crackles Cardiovascular/Chest: Present: regular rate, rhythm, no murmur Abdomen: Present: Normal bowel sounds, soft, nontender, nondistended Skin Exam: Present: normal color, warm/dry, no cyanosis Appearance: Present: appropriate appearance, appropriate insight Eye contact: Present: cooperative, good eye contact, normal speech Thoughts: Present: normal thought pattern, no apparent hallucination Assessment/Plan Plan Narrative: Overall stable, but no significant improvement. Lungs sound wet. She is getting 80mg PO of lasix daily but this is her home medication. Will give 80mg IV lasix 6 hours after her oral lasix from this morning for additional diuresis to see if this will help oxygenation. Continue steroids, antibiotics, and oxygen. Will continue to wean as able. - Problems/Diagnosis (1) Acute respiratory disease due to COVID-19 virus Problem: Acute (2) Pneumonia due to COVID-19 virus Problem: Acute
[2020-07-10] MEDS ORDERED: FUROSEMIDE 10 MG/ML VIAL IV ONE (15:00)
[2020-07-10] MEDS: LEVOFLOXACIN IN DEXTROSE 5 % 500 MG/100 ML BAG IV SCH (15:58)
[2020-07-10] MEDS: guaiFENesin/DEXTROMETHORPHAN SYRUP PO PRN (21:02)
[2020-07-10] MEDS: LORazepam 2 MG/ML DISP.SYRIN IV PRN (21:12)
[2020-07-11] MEDS: METHYLPREDNISOLONE SOD SUCC/PF 125 MG/2 ML VIAL IV SCH ×4 (03:01→20:48)
[2020-07-11] MEDS: IPRATROPIUM/ALBUTEROL SULFATE 120 PUFF INHALER IH SCH ×6 (03:01→22:15)
[2020-07-11] MEDS: PANTOPRAZOLE SODIUM 20 MG TABLET.DR PO SCH ×2 (07:54→20:47)
[2020-07-11] MEDS: LEVOTHYROXINE SODIUM 88 MCG TABLET PO SCH (07:54)
[2020-07-11] MEDS: DOCUSATE SODIUM 100 MG CAPSULE PO SCH ×2 (08:02→20:47)
[2020-07-11] MEDS: ASCORBIC ACID 500 MG TABLET PO SCH (08:04)
[2020-07-11] MEDS: LOSARTAN POTASSIUM 50 MG TABLET PO SCH (08:05)
[2020-07-11] MEDS: FUROSEMIDE 80 MG TABLET PO SCH (08:05)
[2020-07-11] MEDS: ZINC SULFATE 220 MG CAPSULE PO SCH (08:06)
[2020-07-11 10:09] LABS: Hematocrit 39.8 % (37.0-47.0); Hemoglobin 12.8 gm/dL (12.5-16.0); Mean Cell Volume 93.6 fl (78-100); Mean Corpuscular Hemoglobin 30.1 pg (27-31); Mean Corpuscular Hgb Conc 32.2 g/dl (32-36); Mean Platelet Volume 9.2 fl (8-12.5); Neutrophil # 12.4 K/mm3 (1.3-6.0); Platelet Count 486 K/mm3 (150-450); Red Blood Count 4.25 M/mm3 (4.2-5.4); Red Cell Distribution Width 11.9 % (11.5-14.0); White Blood Count 14.1 K/mm3 (4.0-10.5)
[2020-07-11 10:33] LABS: Albumin * 2.5 gm/dl (3.4-5.0); Anion Gap 10.2 mmol/L (6.8-13.8); BUN/Creatinine Ratio 23.7 (9.0-21.6); Bilirubin, Total 0.6 mg/dL (0.0-1.1); Ca. Corrected For Albumin 9.7 mg/dL (8.4-10.2); Calcium * 8.8 mg/dL (7.9-10.9); Carbon Dioxide 34.6 mmol/L (24-32.6); Potassium 3.8 mmol/L (3.4-4.6); Total Protein 6.2 gm/dL (6.2-8.2)
[2020-07-11] MEDS: ENOXAPARIN SODIUM 40 MG/0.4 ML SYRG SC SCH (12:33)
[2020-07-11] MEDS ORDERED: FUROSEMIDE 10 MG/ML VIAL IV ONE (15:00)
[2020-07-11] MEDS: LEVOFLOXACIN IN DEXTROSE 5 % 500 MG/100 ML BAG IV SCH (15:34)
[2020-07-11] MEDS: hydrOXYzine PAMOATE 50 MG CAPSULE PO PRN (20:47)
[2020-07-11] MEDS: guaiFENesin/DEXTROMETHORPHAN SYRUP PO PRN (22:45)
--- NOTE | 2020-07-11 23:36 | PN ---
Subjective - Date and Time Seen Date: 07/11/20 Time: 10:30 Subjective Narrative: Rosio reports feeling a little better today. She had good urine output after lasix yesterday. No change in oxygen flow rate. Objective - Vitals Vitals: Last Vital Signs Temp 36.4 C 07/11/20 19:02 Pulse 88 07/11/20 19:02 Resp 20 07/11/20 19:02 BP 126/69 07/11/20 19:02 Pulse Ox 94 07/11/20 19:02 - Abnormal Lab Findings Abnormal Lab Findings: Abnormal Lab Results 07/11/20 07/11/20 Range/Units 10:00 10:00 WBC 14.1 H (4.0-10.5) K/mm3 Plt Count 486 H (150-450) K/mm3 Immature Gran % (Auto) 1.00 H (0.001-0.429) % Immature Gran # (Auto) 0.14 H (0.000-0.0310) K/mm3 Neutrophils % 88.0 H (42-75.0) % Lymphocytes % 6.1 L (20-51) % Neutrophils # 12.4 H (1.3-6.0) K/mm3 Lymphocytes # 0.86 L (1.5-3.5) k/mm3 Sodium 146 H (132-142) mmol/L Plasma Sodium 147 H (130-142) mmol/L Carbon Dioxide 34.6 H (24-32.6) mmol/L BUN/Creatinine Ratio 23.7 H (9.0-21.6) Random Glucose 137 H (70-110) mg/dL Albumin 2.5 L (3.4-5.0) gm/dl - Exam Constitutional: Present: Alert, Oriented x3, Cooperative ENT Exam: Present: hearing grossly normal Respiratory: Present: crackles Cardiovascular/Chest: Present: regular rate, rhythm, no murmur Abdomen: Present: Normal bowel sounds, soft, nontender, nondistended Skin Exam: Present: normal color, warm/dry, no cyanosis Appearance: Present: appropriate appearance, appropriate insight Eye contact: Present: cooperative, good eye contact, normal speech Assessment/Plan Plan Narrative: Had good diuresis with IV lasix yesterday afternoon and feeling better today. Kidney function tolerated extra dose well and crackles still present, will dose IV lasix again this afternoon 6 hours after oral dose from this morning. Continue all other regimen. - Problems/Diagnosis (1) Acute respiratory disease due to COVID-19 virus Problem: Acute (2) Pneumonia due to COVID-19 virus Problem: Acute
[2020-07-12] MEDS: LORazepam 2 MG/ML DISP.SYRIN IV PRN ×2 (00:11→21:49)
[2020-07-12] MEDS: IPRATROPIUM/ALBUTEROL SULFATE 120 PUFF INHALER IH SCH ×6 (02:50→22:01)
[2020-07-12] MEDS: METHYLPREDNISOLONE SOD SUCC/PF 125 MG/2 ML VIAL IV SCH ×4 (02:50→22:00)
[2020-07-12] MEDS: LEVOTHYROXINE SODIUM 88 MCG TABLET PO SCH (06:18)
[2020-07-12] MEDS: PANTOPRAZOLE SODIUM 20 MG TABLET.DR PO SCH ×2 (06:18→20:18)
[2020-07-12 07:03] LABS: Hematocrit 38.7 % (37.0-47.0); Hemoglobin 12.6 gm/dL (12.5-16.0); Mean Cell Volume 92.8 fl (78-100); Mean Corpuscular Hemoglobin 30.2 pg (27-31); Mean Corpuscular Hgb Conc 32.6 g/dl (32-36); Mean Platelet Volume 9.1 fl (8-12.5); Neutrophil # 10.1 K/mm3 (1.3-6.0); Neutrophil % 87.1 % (42-75.0); Platelet Count 417 K/mm3 (150-450); Red Blood Count 4.17 M/mm3 (4.2-5.4); Red Cell Distribution Width 11.9 % (11.5-14.0); White Blood Count 11.6 K/mm3 (4.0-10.5)
[2020-07-12 07:16] LABS: Albumin * 2.2 gm/dl (3.4-5.0); Anion Gap 10.1 mmol/L (6.8-13.8); BUN/Creatinine Ratio 22.1 (9.0-21.6); Bilirubin, Total 0.5 mg/dL (0.0-1.1); Ca. Corrected For Albumin 9.6 mg/dL (8.4-10.2); Calcium * 8.5 mg/dL (7.9-10.9); Carbon Dioxide 32.5 mmol/L (24-32.6); Potassium 3.6 mmol/L (3.4-4.6); Total Protein 5.9 gm/dL (6.2-8.2)
[2020-07-12] MEDS: LOSARTAN POTASSIUM 50 MG TABLET PO SCH (08:10)
[2020-07-12] MEDS: ASCORBIC ACID 500 MG TABLET PO SCH (08:10)
[2020-07-12] MEDS: ZINC SULFATE 220 MG CAPSULE PO SCH (08:10)
[2020-07-12] MEDS: FUROSEMIDE 80 MG TABLET PO SCH (08:11)
[2020-07-12] MEDS: DOCUSATE SODIUM 100 MG CAPSULE PO SCH ×2 (08:11→20:18)
[2020-07-12] MEDS: guaiFENesin/DEXTROMETHORPHAN SYRUP PO PRN ×3 (08:16→19:29)
--- NOTE | 2020-07-12 10:22 | PN ---
Subjective - Date and Time Seen Date: 07/12/20 Time: 10:15 Subjective Narrative: Breathing better now just have a persistent cough Objective Objective Narrative: 55-year-old female admitted for COVID-19 pneumonia and dehydration was evaluated at bedside this morning was found to be afebrile and in no acute distress. Patient patient did better during the weekend and responded well to her change in treatment. She was started on Solu-Medrol and was treated with diuretics during the weekend. She had great urine output in response to diuretics, this has resulted in successful weaning of her supplemental oxygen an d she is now on nasal cannula maintaining saturation. She does however desaturate when transferring from bedside to commode. She continues to cough which is not surprising in COVID-19 pneumonia, so manage that symptom with antitussives. There has been no recurrence of fever or chills, vitals are also stable. We will continue current management. - Review of Systems Generalized/Overall Review: Reports: Weakness EENTM: Reports: No Symptoms Reported Respiratory: Reports: Cough, Shortness of Breath Cardiac: Reports: No Symptoms Reported Abdominal: Reports: No Symptoms Reported Genitourinary Symptoms: Reports: No Symptoms Reported Musculoskeletal Complaints: Reports: No Symptoms Reported Neurological: Reports: No Symptoms Reported Skin: Reports: No Symptoms Reported Endocrine: Reports: No Symptoms Reported - Vitals Vitals: Last Vital Signs Temp 36.6 C 07/12/20 07:04 Pulse 63 07/12/20 08:11 Resp 18 07/12/20 07:04 BP 141/70 H 07/12/20 08:11 Pulse Ox 96 07/12/20 07:04 - Abnormal Lab Findings Abnormal Lab Findings: Abnormal Lab Results 07/11/20 07/11/20 07/12/20 Range/Units 10:00 10:00 06:55 WBC 14.1 H 11.6 H (4.0-10.5) K/mm3 RBC 4.17 L (4.2-5.4) M/mm3 Plt Count 486 H (150-450) K/mm3 Immature Gran % (Auto) 1.00 H 1.50 H (0.001-0.429) % Immature Gran # (Auto) 0.14 H 0.17 H (0.000-0.0310) K/mm3 Neutrophils % 88.0 H 87.1 H (42-75.0) % Lymphocytes % 6.1 L 5.8 L (20-51) % Neutrophils # 12.4 H 10.1 H (1.3-6.0) K/mm3 Lymphocytes # 0.86 L 0.67 L (1.5-3.5) k/mm3 Sodium 146 H (132-142) mmol/L Plasma Sodium 147 H (130-142) mmol/L Carbon Dioxide 34.6 H (24-32.6) mmol/L BUN/Creatinine Ratio 23.7 H (9.0-21.6) Random Glucose 137 H (70-110) mg/dL Total Protein (6.2-8.2) gm/dL Albumin 2.5 L (3.4-5.0) gm/dl 07/12/20 Range/Units 06:55 WBC (4.0-10.5) K/mm3 RBC (4.2-5.4) M/mm3 Plt Count (150-450) K/mm3 Immature Gran % (Auto) (0.001-0.429) % Immature Gran # (Auto) (0.000-0.0310) K/mm3 Neutrophils % (42-75.0) % Lymphocytes % (20-51) % Neutrophils # (1.3-6.0) K/mm3 Lymphocytes # (1.5-3.5) k/mm3 Sodium 143 H (132-142) mmol/L Plasma Sodium 144 H (130-142) mmol/L Carbon Dioxide (24-32.6) mmol/L BUN/Creatinine Ratio 22.1 H (9.0-21.6) Random Glucose 147 H (70-110) mg/dL Total Protein 5.9 L (6.2-8.2) gm/dL Albumin 2.2 L (3.4-5.0) gm/dl - Exam Constitutional: Present: Alert, Oriented x3, Cooperative, Well developed, Well nourished, No distress, Obese ENT Exam: Present: normal ENT inspection, hearing grossly normal Neck: Present: non-tender, full range of motion, supple, normal inspection, trachea midline Breasts: Present: Exam deferred, Nontender Respiratory: Present: chest non-tender, lungs clear, normal breath sounds, no respiratory distress, no accessory muscle use, respiratory distress Cardiovascular/Chest: Present: normal peripheral pulses, regular rate, rhythm, no chest tenderness, no edema, no gallop, no JVD, no murmur, no rub Abdomen: Present: Normal bowel sounds, soft, nontender, nondistended, no rebound tenderness, no hepatospenomegaly, no masses, obese /Rectal: Present: Exam deferred Extremity: Present: normal range of motion, non-tender, normal inspection, no pedal edema, no calf tenderness, normal capillary refill Skin Exam: Present: normal color, warm/dry, no cyanosis Lymphatic: Present: no adenopathy Neurologic: Present: 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 We will attempt to wean oxygen as tolerated and continue to monitor closely. - Problems/Diagnosis (1) Anxiety Problem: Acute (2) Pneumonia due to COVID-19 virus Problem: Acute (3) Hypothyroidism Problem: Chronic (4) Fatigue Problem: Chronic (5) Depressive disorder Problem: Chronic (6) Dehydration Problem: Resolved (7) Transaminitis Problem: Acute
[2020-07-12] MEDS: ENOXAPARIN SODIUM 40 MG/0.4 ML SYRG SC SCH (11:51)
[2020-07-12] MEDS: LEVOFLOXACIN IN DEXTROSE 5 % 500 MG/100 ML BAG IV SCH (15:24)
[2020-07-12] MEDS: ACETAMINOPHEN 325 MG TABLET PO PRN (19:29)
[2020-07-12] MEDS: hydrOXYzine PAMOATE 50 MG CAPSULE PO PRN (19:29)
[2020-07-13] MEDS: IPRATROPIUM/ALBUTEROL SULFATE 120 PUFF INHALER IH SCH ×6 (03:45→23:11)
[2020-07-13] MEDS: METHYLPREDNISOLONE SOD SUCC/PF 125 MG/2 ML VIAL IV SCH ×2 (03:45→09:07)
[2020-07-13] MEDS: PANTOPRAZOLE SODIUM 20 MG TABLET.DR PO SCH ×2 (06:19→20:10)
[2020-07-13] MEDS: LEVOTHYROXINE SODIUM 88 MCG TABLET PO SCH (06:19)
[2020-07-13] MEDS: DOCUSATE SODIUM 100 MG CAPSULE PO SCH ×3 (08:11→20:09)
[2020-07-13] MEDS: ASCORBIC ACID 500 MG TABLET PO SCH (08:11)
[2020-07-13] MEDS: ZINC SULFATE 220 MG CAPSULE PO SCH (08:11)
[2020-07-13] MEDS: FUROSEMIDE 80 MG TABLET PO SCH (08:11)
[2020-07-13] MEDS: LOSARTAN POTASSIUM 50 MG TABLET PO SCH (08:11)
[2020-07-13] MEDS: guaiFENesin/DEXTROMETHORPHAN SYRUP PO PRN (08:16)
[2020-07-13] MEDS: ENOXAPARIN SODIUM 40 MG/0.4 ML SYRG SC SCH (11:46)
--- NOTE | 2020-07-13 12:21 | PN ---
Subjective - Date and Time Seen Date: 07/13/20 Time: 12:17 Subjective Narrative: I feel somewhat better but still short of breath when I get up to use commode. Objective - Review of Systems Generalized/Overall Review: Reports: Weakness EENTM: Reports: No Symptoms Reported Respiratory: Reports: Cough, Shortness of Breath Cardiac: Reports: No Symptoms Reported Abdominal: Reports: No Symptoms Reported Genitourinary Symptoms: Reports: No Symptoms Reported Musculoskeletal Complaints: Reports: No Symptoms Reported Neurological: Reports: No Symptoms Reported Skin: Reports: No Symptoms Reported Endocrine: Reports: No Symptoms Reported - Vitals Vitals: Last Vital Signs Temp 36.7 C 07/13/20 09:28 Pulse 88 07/13/20 09:28 Resp 20 07/13/20 09:28 BP 139/67 07/13/20 09:28 Pulse Ox 92 L 07/13/20 09:28 - Exam Constitutional: Present: Alert, Oriented x3, Cooperative, Well developed, Well nourished, No distress, Morbidly obese ENT Exam: Present: normal ENT inspection, hearing grossly normal Neck: Present: non-tender, full range of motion, supple, normal inspection, trachea midline Breasts: Present: Exam deferred Respiratory: Present: lungs clear, normal breath sounds, no respiratory distress, no accessory muscle use, No wheezing Cardiovascular/Chest: Present: normal peripheral pulses, regular rate, rhythm, no chest tenderness, no edema, no gallop, no JVD, no murmur, no rub Abdomen: Present: Normal bowel sounds, soft, nontender, nondistended, no rebound tenderness, no hepatospenomegaly, no masses, obese /Rectal: Present: Exam deferred Extremity: Present: normal range of motion, non-tender, normal inspection, no pedal edema, no calf tenderness Skin Exam: Present: normal color, warm/dry, no cyanosis Lymphatic: Present: no adenopathy Neurologic: Present: no motor/sensory deficits, alert, normal mood/affect, oriented x 3 Appearance: Present: appropriate appearance, appropriate insight, neat, no memory impairment Eye contact: Present: cooperative, good eye contact, normal speech Thoughts: Present: normal thought pattern, no apparent hallucination Assessment/Plan Plan Narrative: Patient continues to show significant clinical improvement, her crackles have resolved and she is less short of breath. However we have not been able to successfully wean her off of the oxygen, she still requires 5 L nasal cannula. She has now completed the course of IV antibiotics, today was her last dose. We will start weaning IV steroids to see how she tolerates. - Problems/Diagnosis (1) Anxiety Problem: Acute (2) Pneumonia due to COVID-19 virus Problem: Acute (3) Hypothyroidism Problem: Chronic (4) Fatigue Problem: Chronic (5) Depressive disorder Problem: Chronic (6) Dehydration Problem: Resolved (7) Transaminitis Problem: Resolved
[2020-07-13] MEDS: METHYLPREDNISOLONE SOD SUCC/PF 40 MG/ML VIAL IV SCH (20:10)
[2020-07-13] MEDS: hydrOXYzine PAMOATE 50 MG CAPSULE PO PRN (20:10)
[2020-07-14] MEDS: hydrOXYzine PAMOATE 50 MG CAPSULE PO PRN (00:22)
[2020-07-14] MEDS: LORazepam 2 MG/ML DISP.SYRIN IV PRN (01:49)
[2020-07-14] MEDS: IPRATROPIUM/ALBUTEROL SULFATE 120 PUFF INHALER IH SCH ×6 (02:07→23:49)
[2020-07-14] MEDS: PANTOPRAZOLE SODIUM 20 MG TABLET.DR PO SCH ×2 (07:34→20:08)
[2020-07-14] MEDS: LEVOTHYROXINE SODIUM 88 MCG TABLET PO SCH (07:34)
[2020-07-14] MEDS: DOCUSATE SODIUM 100 MG CAPSULE PO SCH ×2 (08:55→20:59)
[2020-07-14] MEDS: FUROSEMIDE 80 MG TABLET PO SCH (08:55)
[2020-07-14] MEDS: LOSARTAN POTASSIUM 50 MG TABLET PO SCH (08:55)
[2020-07-14] MEDS: ZINC SULFATE 220 MG CAPSULE PO SCH (08:56)
[2020-07-14] MEDS: METHYLPREDNISOLONE SOD SUCC/PF 40 MG/ML VIAL IV SCH (08:56)
[2020-07-14] MEDS: ASCORBIC ACID 500 MG TABLET PO SCH (08:56)
[2020-07-14] MEDS: guaiFENesin/DEXTROMETHORPHAN SYRUP PO PRN (10:30)
--- NOTE | 2020-07-14 11:56 | PN ---
Subjective - Date and Time Seen Date: 07/14/20 Time: 11:52 Subjective Narrative: I feel better just have a cough and still feeling weak Objective Objective Narrative: 55-year-old female admitted for COVID-19 pneumonia and dehydration was evaluated at bedside this morning was found to be afebrile and in no acute distress. Patient patient continues to show clinical improvement however she still desaturates on mild exertion, and we have not been able to completely wean her off oxygen. She is currently on nasal cannula at 3 L, so we will continue to wean as she tolerates. Only complaint at this moment is still feeling tired and weak and a persistent cough. We will treat her with supportive therapy to help with these issues, although it was explained to patient that it is very common for patient to have a lack of energy for several weeks after being diagnosed with COVID-19 so proper rest and proper hydration is wang while she recovers. We will continue to monitor closely. - Review of Systems Generalized/Overall Review: Reports: Weakness EENTM: Reports: No Symptoms Reported Respiratory: Reports: Cough Cardiac: Reports: No Symptoms Reported Abdominal: Reports: No Symptoms Reported Genitourinary Symptoms: Reports: No Symptoms Reported Musculoskeletal Complaints: Reports: No Symptoms Reported Neurological: Reports: No Symptoms Reported Skin: Reports: No Symptoms Reported Endocrine: Reports: No Symptoms Reported - Vitals Vitals: Last Vital Signs Temp 36.9 C 07/14/20 07:45 Pulse 82 07/14/20 08:55 Resp 18 07/14/20 07:45 BP 154/90 H 07/14/20 08:55 Pulse Ox 99 07/14/20 07:45 - Exam Constitutional: Present: Alert, Oriented x3, Cooperative, Well developed, Well nourished, No distress, Morbidly obese ENT Exam: Present: normal ENT inspection, hearing grossly normal Neck: Present: non-tender, full range of motion, supple, normal inspection, trachea midline Respiratory: Present: chest non-tender, lungs clear, normal breath sounds, no respiratory distress, no accessory muscle use Cardiovascular/Chest: Present: normal peripheral pulses, regular rate, rhythm, no chest tenderness, no edema, no gallop, no JVD, no murmur, no rub Abdomen: Present: Normal bowel sounds, soft, nontender, nondistended, no rebound tenderness, no hepatospenomegaly, no masses, obese /Rectal: Present: Exam deferred Extremity: Present: normal range of motion, non-tender, normal inspection, no pedal edema, no calf tenderness Skin Exam: Present: normal color, warm/dry, no cyanosis Lymphatic: Present: no adenopathy 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 - Problems/Diagnosis (1) Anxiety Problem: Acute (2) Pneumonia due to COVID-19 virus Problem: Acute (3) Hypothyroidism Problem: Chronic (4) Fatigue Problem: Chronic (5) Depressive disorder Problem: Chronic (6) Dehydration Problem: Resolved (7) Transaminitis Problem: Resolved
[2020-07-14] MEDS: ENOXAPARIN SODIUM 40 MG/0.4 ML SYRG SC SCH (12:26)
[2020-07-14] MEDS ORDERED: MELATONIN 3,000 MCG TABLET PO PRN (20:56)
[2020-07-15] MEDS: IPRATROPIUM/ALBUTEROL SULFATE 120 PUFF INHALER IH SCH ×3 (02:19→12:16)
[2020-07-15] MEDS: guaiFENesin/DEXTROMETHORPHAN SYRUP PO PRN ×2 (04:32→11:32)
[2020-07-15] MEDS ORDERED: LORazepam 0.5 MG TABLET PO ONE (06:55)
[2020-07-15] MEDS: LEVOTHYROXINE SODIUM 88 MCG TABLET PO SCH (07:02)
[2020-07-15] MEDS: PANTOPRAZOLE SODIUM 20 MG TABLET.DR PO SCH (07:02)
[2020-07-15] MEDS: DOCUSATE SODIUM 100 MG CAPSULE PO SCH (08:57)
[2020-07-15] MEDS: ZINC SULFATE 220 MG CAPSULE PO SCH (08:58)
[2020-07-15] MEDS: LOSARTAN POTASSIUM 50 MG TABLET PO SCH (08:58)
[2020-07-15] MEDS: ASCORBIC ACID 500 MG TABLET PO SCH (08:58)
[2020-07-15] MEDS: FUROSEMIDE 80 MG TABLET PO SCH (08:58)
[2020-07-15] MEDS ORDERED: predniSONE 20 MG TABLET PO SCH (09:00)
--- NOTE | 2020-07-15 09:45 | DS ---
(1) Anxiety Problem: Acute (2) Pneumonia due to COVID-19 virus Problem: Acute (3) Hypothyroidism Problem: Chronic (4) Fatigue Problem: Chronic (5) Depressive disorder Problem: Chronic (6) Dehydration Problem: Resolved (7) Transaminitis Problem: Resolved Date of Discharge:: 07/15/20 Hospital Course: 55-year-old female admitted for Covid 19 pneumonia was evaluated at bedside this morning was found to be afebrile and in no acute distress. Anxiety continues to be an issue for the patient in fact she reports she had a terrible night last night and was unable to sleep. The patient reports doing well during the day but as soon as the night comes she is unable to rest and relax, she suspects this has to do with being in a tight cold room in isolation. Therefore the patient insisted on going home today despite being told that she desaturates on exertion. The patient is currently on 3 L of oxygen and tolerated the weaning down to room air until she had to get up and ambulate. Therefore we will attempt to discharge her home with orders for O2 oxygen and inhalers. We will also prescribe additional days of p.o. steroids. The patient is instructed to follow-up with her PCP in 1 week. Procedures Performed: none Results and Findings: Lab Pending Results 07/04/20 23:10: WBC 10.3, RBC 4.28, Hgb 13.0, Hct 40.0, MCV 93.5, MCH 30.4, MCHC 32.5, RDW 12.5, Plt Count 285, MPV 9.3, Immature Gran % (Auto) 0.90 H, Immature Gran # (Auto) 0.09 H, Neutrophils % 90.6 H, Lymphocytes % 4.8 L, Monocytes % 3.6, Eosinophils % 0.0, Basophils % 0.1, Nucleated RBC % 0.0, Neutrophils # 9.4 H, Lymphocytes # 0.50 L, Monocytes # 0.4, Eosinophils # 0.0, Absolute Basophils 0.0 07/04/20 23:10: Sodium 142, Plasma Sodium 143 H, Potassium 3.9, Chloride 103, Carbon Dioxide 32.0, Anion Gap 10.9, BUN 16, Creatinine 0.77, Est GFR (Non-Af Amer) 82 D, BUN/Creatinine Ratio 20.8, Random Glucose 137 H, Calcium 8.7, Calcium Adj for Albumin 9.3, Total Bilirubin 0.5, AST 285 H, ALT 326 H, Alkaline Phosphatase 168, Total Protein 6.7, Albumin 2.8 L 07/04/20 23:10: D-Dimer 0.57 H 07/06/20 06:25: Sodium 142, Plasma Sodium 143 H, Potassium 3.9, Chloride 102, Carbon Dioxide 36.6 H, Anion Gap 7.3, BUN 20, Creatinine 0.75, Est GFR (Non-Af Amer) 85, BUN/Creatinine Ratio 26.7 H, Random Glucose 134 H, Calcium 8.6, Calcium Adj for Albumin 9.5, Total Bilirubin 0.4, AST 69 H, ALT 167 H, Alkaline Phosphatase 146, Total Protein 6.7, Albumin 2.5 L 07/07/20 06:36: Sodium 143 H, Plasma Sodium 143 H, Potassium 3.5, Chloride 101, Carbon Dioxide 37.8 H, Anion Gap 7.7, BUN 24 H, Creatinine 0.86, Est GFR (Non-Af Amer) 72, BUN/Creatinine Ratio 27.9 H, Random Glucose 101, Calcium 8.6, Calcium Adj for Albumin 9.6, Total Bilirubin 0.6, AST 55 H, ALT 134 H, Alkaline Phosphatase 148, Total Protein 6.4, Albumin 2.4 L 07/09/20 10:12: Sodium 142, Plasma Sodium 142, Potassium 3.5, Chloride 99, Carbon Dioxide 34.6 H, Anion Gap 11.9, BUN 18, Creatinine 0.69, Est GFR (Non-Af Amer) 93 D, BUN/Creatinine Ratio 26.1 H, Random Glucose 107, Calcium 8.3, Calcium Adj for Albumin 9.3, Total Bilirubin 0.8, AST 37, ALT 69 H, Alkaline Phosphatase 107, Total Protein 5.9 L, Albumin 2.4 L 07/11/20 10:00: WBC 14.1 H, RBC 4.25, Hgb 12.8, Hct 39.8, MCV 93.6, MCH 30.1, MCHC 32.2, RDW 11.9, Plt Count 486 H, MPV 9.2, Immature Gran % (Auto) 1.00 H, Immature Gran # (Auto) 0.14 H, Neutrophils % 88.0 H, Lymphocytes % 6.1 L, Monocytes % 4.8, Eosinophils % 0.0, Basophils % 0.1, Nucleated RBC % 0.0, Neutrophils # 12.4 H, Lymphocytes # 0.86 L, Monocytes # 0.7, Eosinophils # 0.0, Absolute Basophils 0.0 07/11/20 10:00: Sodium 146 H, Plasma Sodium 147 H, Potassium 3.8, Chloride 105, Carbon Dioxide 34.6 H, Anion Gap 10.2, BUN 18, Creatinine 0.76, Est GFR (Non-Af Amer) 83, BUN/Creatinine Ratio 23.7 H, Random Glucose 137 H, Calcium 8.8, Calcium Adj for Albumin 9.7, Total Bilirubin 0.6, AST 13, ALT 51, Alkaline Phosphatase 94, Total Protein 6.2, Albumin 2.5 L 07/12/20 06:55: WBC 11.6 H, RBC 4.17 L, Hgb 12.6, Hct 38.7, MCV 92.8, MCH 30.2, MCHC 32.6, RDW 11.9, Plt Count 417, MPV 9.1, Immature Gran % (Auto) 1.50 H, Immature Gran # (Auto) 0.17 H, Neutrophils % 87.1 H, Lymphocytes % 5.8 L, Monocytes % 5.5, Eosinophils % 0.0, Basophils % 0.1, Nucleated RBC % 0.0, Neutrophils # 10.1 H, Lymphocytes # 0.67 L, Monocytes # 0.6, Eosinophils # 0.0, Absolute Basophils 0.0 07/12/20 06:55: Sodium 143 H, Plasma Sodium 144 H, Potassium 3.6, Chloride 104, Carbon Dioxide 32.5, Anion Gap 10.1, BUN 17, Creatinine 0.77, Est GFR (Non-Af Amer) 82, BUN/Creatinine Ratio 22.1 H, Random Glucose 147 H, Calcium 8.5, Calcium Adj for Albumin 9.6, Total Bilirubin 0.5, AST 14, ALT 38, Alkaline Phosphatase 87, Total Protein 5.9 L, Albumin 2.2 L Discharge Location: Home Disposition: Home self-care Condition: Fair Face to Face Encounter completed per [facility] Guidelines: No Discharge Activity: Activity as tolerated Discharge Diet: General/regular food Referrals: Merly Gomez MD [Primary Care Provider] - Additional Patient Instructions (free text): Follow up appointment July 22 at 10:[address] Gomez. Prescriptions (Any new or edited meds): Ipratropium/Albuterol Sulfate [Combivent Respimat 20-100 mcg] 1 puff IH Q4HRT #1 inhaler Transmission Status: Received by [facility] Complete Home Medications List: Complete Home Medication List: losartan 50 mg tablet 50 mg PO DAILY #30 tab 01/15/20 albuterol sulfate 90 mcg/actuation aerosol inhaler 2 puff IH Q3H PRN #8.5 g 03/16/20 levothyroxine 88 mcg tablet 88 mcg PO DAILY #30 tab 04/20/20 ibuprofen 600 mg tablet 600 mg PO Q6H PRN #90 tab 06/30/20 Dexamethasone [Decadron] 6 mg PO DAILY #7 tab 07/02/20 Furosemide [Lasix] 80 mg PO DAILY 07/07/20 Lansoprazole [Prevacid] 30 mg PO DAILY 07/07/20 Phentermine HCl [Adipex-P] 37.5 mg PO DAILY 07/07/20 Ipratropium/Albuterol Sulfate [Combivent Respimat 20-100 mcg] 1 puff IH Q4HRT #1 inhaler 07/15/20 Forms: COVID "Return To Work", Patient Portal Registration, Work Release Form
[2020-07-15] MEDS: ENOXAPARIN SODIUM 40 MG/0.4 ML SYRG SC SCH (13:24)
[2020-07-15 15:39] VITALS: BP 127/66
== END 2020-07-15 15:20 | disposition home or self-care (01) | DRG 177 ==
LOC: ER 21:56 → SCU 21:56
PROVIDERS: ADMIT Family Medicine; ATTEND Family Medicine
DX: F41.9 Anxiety disorder, unspecified; U07.1 COVID-19; J96.01 Acute respiratory failure with hypoxia; F32.9 Major depressive disorder, single episode, unspecified; J12.82 Pneumonia due to coronavirus disease 2019; R74.01 Elevation of levels of liver transaminase levels; E86.0 Dehydration; E03.9 Hypothyroidism, unspecified; R53.83 Other fatigue